=== PATIENT | male | born 1985 | race African-American/Black ===

== ENCOUNTER 2016-09-02 09:47 | Emergency (ER) | payer MEDICAID ==
[2016-09-02 09:55] VITALS: BP 144/72
[2016-09-02 10:27] LABS: Hematocrit 40.6 % (42.0-52.0); Hemoglobin 13.8 gm/dL (13.5-18.0); Mean Corpuscular Hemoglobin 30.9 pg (27-31); Neutrophil # 2.7 K/mm3 (1.3-6.0); Neutrophil % 49.8 % (42-75.0); Platelet Count 167 K/mm3 (150-450); Red Blood Count 4.46 M/mm3 (4.7-6.0); Red Cell Distribution Width 13.3 % (11.5-14.0); White Blood Count 5.5 K/mm3 (4.0-10.5)
--- NOTE | 2016-09-02 10:33 | ERNOTE ---
Medical Problem HPI - Narrative Date of Service: 09/02/16 - General Chief Complaint: General Assessment Time Seen by Provider: 09/02/16 10:00 Source: patient Exam Limitations: no limitations - Immun/Allergies/Home Medications Immunizations: IMMUNIZATION HX Immunizations Up to Date Yes History of Influenza Vaccine No Allergies/Adverse Reactions: Allergies No Known Allergies Allergy (Unverified 09/02/16 09:55) Home Medications: HOME MEDICATIONS NK [No Home Medication] 09/02/16 [Last Taken Unknown] - History of Present History Narrative: 31 year old AA male who presents today with complaints of swollen bilateral cervical lymph nodes x few months. Patient states he has history of non Hodgkin lymphoma diagnosed in 2004 in [place]. States after chemo he went into remission. States about Timothy time he noticed non tender but swollen glands right side large and more swollen than left. Currently complains of upper respiratory infection type symptoms: nasal congestion, sinus pain and body aches x 2 weeks. Denies fever chills or NVD Timing: constant Severity: mild Modifying Factors - (Improves): Present: other - states nothing decreases swelling Modifying Factors - (Worsens): Present: other - states does not notice what worsens swelling Review of Systems - Review of Systems Constitutional: Present: recent illness. Absent: fever, chills, diaphoresis, weakness, fatigue, weight loss EYE: Present: no symptoms reported. Absent: eye pain, eye discharge, blurred vision, vision changes ENT: Present: nose pain, nose congestion. Absent: ear pain, ear discharge, nasal drainage, sore throat, throat swelling Respiratory: Present: no symptoms reported, cough - states has chronic cough from smoking. Absent: shortness of breath Cardiology: Absent: chest pain, palpitations, syncope, edema Gastrointestinal/Abdominal: Present: no symptoms reported. Absent: nausea, vomiting, diarrhea Genitourinary: Absent: no symptoms reported Musculoskeletal: Absent: no symptoms reported, back pain, muscle pain, muscle stiffness, neck pain, joint pain, joint swelling Skin: Present: no symptoms reported. Absent: rash, dryness, lesions Neurological: Absent: no symptoms reported, anxiety, headache, weakness, numbness, tingling Endocrine: Present: no symptoms reported Hematologic/Lymphatic: Present: swollen glands Psych: Present: no symptoms reported - Patient's Past Medical History Patient History - Medical: No pertinent hx Patient History - Cardiac/Respiratory: No pertinent hx Patient History - Cancer: Lymphoma Patient History - Surgical Procedures: T & A, Other Patient History - Other: None - Social History Psych History: No pertinent hx Smoking Status: Current every day smoker Have you smoked in the past 12 months: Yes Do you dip or chew tobacco: No Alcohol Use: occasionally Drug Use: marijuana - Immunizations Immunizations Up to Date: Yes History of Influenza Vaccine: No Physical Exam - Physical Exam General Appearance: Present: wd/wn, alert, no apparent distress. Absent: moderate distress, severe distress, anxious Eye Exam: Normal inspection: bilateral, PERRL: bilateral Ears, Nose, Throat: Present: normal ENT inspection, hearing grossly normal, nasal congestion, sinus pain/drainage, normal pharynx. Absent: pharyngeal swelling, tonsillar exudate, tonsillar swelling, dry mucous membranes Neck: Present: nontender, supple, lymphadenopathy (R), lymphadenopathy (L) - firm, nontender, mobile nodes Respiratory: Present: no respiratory distress, normal breath sounds, no accessory muscle use, chest nontender, lungs clear. Absent: respiratory distress, accessory muscle use Cardiovascular/Chest: Present: regular rate, rhythm, no murmur, normal peripheral pulses Peripheral Pulses: N=norm/S=strong/W=weak/B=bound/A=absent: Carotid (R): Normal , Carotid (L): Normal, Radial (R): Normal, Radial (L): Normal, Femoral (R): Normal, Femoral (L): Normal Gastrointestinal/Abdominal: Present: normal bowel sounds, nontender, nondistended, soft, no organomegaly Rectal Exam: Present: deferred Male Genitals Exam: Present: other - no femoral nodes palpated Back Exam: Present: normal inspection, normal range of motion, no CVA tenderness Extremity Exam: Present: normal inspection, non-tender, no edema, normal range of motion, other - no axillary nodes palpated Neurological Exam: Present: alert, oriented, normal mood/affect, no motor/ sensory deficits Skin Exam: Present: normal color, warm/dry. Absent: diaphoresis, cyanosis Lymphatic Exam: Absent: axilla node (R), axilla node (L), inguinal node (R), inguinal node (L) Pelvic Exam: Present: deferred ED Progress - Results and Orders Patient's Lab Results:: I have reviewed the patient's lab results. - Vital Signs Patient's Vital Signs:: I have reviewed the patient's vital signs. Vital Signs: Vital Signs 09/02/16 09:52 Temperature 36.1 C L Pulse Rate 89 Respiratory 14 Rate Blood Pressure 144/72 O2 Sat by Pulse 100 Oximetry - Progress/Reassessment Chief Complaint: General Assessment Progress:: Unchanged Progress Note-Subjective: 09/02/16 11:23 Awaiting radiology films to return--patient told RN that he had to leave due to a family emergency. Departure - Departure Clinical Impression: Lymphadenopathy of left cervical region Disposition: Against medical advice Condition: Stable
[2016-09-02 10:40] LABS: Albumin * 4.2 gm/dl (3.4-5.0); Anion Gap 13.3 mmol/L (6.8-13.8); BUN/Creatinine Ratio 14.5 (9.0-21.6); Bilirubin, Total 0.4 mg/dL (0.0-1.1); Ca. Corrected For Albumin 8.8 mg/dL (8.4-10.2); Calcium * 9.3 mg/dL (7.9-10.9); Carbon Dioxide 27.4 mmol/L (24-32.6); Potassium 4.7 mmol/L (3.4-4.6); Total Protein 7.7 gm/dL (6.2-8.2)
== END 2016-09-02 11:21 | disposition left against medical advice (07) ==
LOC: ER 09:47
DX: R59.0 Localized enlarged lymph nodes (principal); F17.210 Nicotine dependence, cigarettes, uncomplicated; Z53.29 Procedure and treatment not carried out because of patient's decision for other reasons; Z85.72 Personal history of non-Hodgkin lymphomas